=== PATIENT | male | born 1985 | race African-American/Black ===

== ENCOUNTER 2018-10-02 23:54 | Emergency (ER) | payer SELFPAY ==
[~2018-10-02] VITALS: Wt 92.6 kg
[2018-10-03 00:07] VITALS: BP 163/94; RESP 28
[2018-10-03] MEDS ORDERED: IPRATROPIUM (NEB) 0.5 MG/2.5 ML AMP NEB STA (00:34)
[2018-10-03] MEDS ORDERED: DEXAMETHASONE 10 MG/ML 1 ML INJ PO STA (00:34)
[2018-10-03] MEDS ORDERED: ALBUTEROL 0.083% (NEB) 2.5 MG/3 ML AMP NEB STA (00:34)
--- NOTE | 2018-10-03 00:37 | ERD ---
ER Documentation Chief Complaint Chief Complaint SOB X'S 1 HOUR, NO HX OF ASTHMA HPI 33-year-old male presents with wheezing and coughing that began tonight. No fever. No past medical history of asthma. No vomiting. No chest pain or palpitations. Has not taken any medications for his symptoms. ROS All systems reviewed and are negative except as per history of present illness. FmHx Family History: No diabetes Physical Exam Vitals Vital Signs Date Temp Pulse Resp B/P (MAP) Pulse Ox O2 O2 Flow FiO2 Time Delivery Rate 10/03/18 69 20 99 21 00:40 10/03/18 96.1 67 28 163/94 99 00:07 (117) Physical Exam Const: No acute distress Head: Atraumatic Eyes: Normal Conjunctiva ENT: Normal External Ears, Nose and Mouth. Neck: Full range of motion. No meningismus. Resp: Bilateral expiratory wheezing, worse on right side Cardio: Regular rate and rhythm, no murmurs Abd: Soft, non tender, non distended. Results 24 hrs Current Medications Medications Dose Sig/Rebecca Start Time Status Last (Trade) Ordered Route PRN Stop Time Admin Dose Reason Admin Albuterol 5 mg ONCE STAT 10/03/18 DC 10/03/18 (Proventil NEB 00:34 00:48 0.083% (Neb)) 10/03/18 00:35 Ipratropium 0.5 mg ONCE STAT 10/03/18 DC 10/03/18 [place] NEB 00:34 00:48 (Atrovent 10/03/18 00:35 0.02% (Neb)) 10 mg ONCE STAT 10/03/18 DC 10/03/18 Dexamethasone PO 00:34 00:56 (Decadron) 10/03/18 00:35 Procedures/MDM Patient presents with wheezing. He is afebrile. Respiratory rate is increased. He is given Decadron and a breathing treatment with improvement. Patient felt much better after the treatment. He is discharged with albuterol. Patient counseled regarding my diagnostic impression and care plan. Prior to discharge all questions answered. Pt agrees with treatment plan and understands strict return precautions. Pt is instructed to follow up with primary care provider within 24-48 hours. Precautionary instructions provided including instructions to return to the ER if not improving or for any worsening or changing symptoms or concerns. Departure Diagnosis: Primary Impression: Wheezing Condition: Stable TAIWO MUÑIZ PA-C Oct 03, 2018 00:37
[2018-10-03] MEDS ORDERED: ALBU8.5H8 INH (01:18)
[2018-10-03 01:23] VITALS: PULSE 65
== END 2018-10-03 01:33 | disposition home or self-care (01) ==
LOC: FTE 23:54
DX: R06.2 Wheezing (principal)
CPT/HCPCS: 94664; 99283; J1100